=== PATIENT | male | born 1965 | race Caucasian/White ===

== ENCOUNTER 2022-04-25 08:04 | Day surgery (SDC) | payer OTHER ==
[~2022-04-25] VITALS: Ht 177.8 cm; Wt 103.2 kg
[~2022-04-25 08:04] MED LIST: ATORVASTATIN CA80 MG PO; B COMPLEX1 EACH PO; FISH OIL 1,001000 MG PO; ONE DAILY PLUS1 EAC1 PO; SAW PALMETTO500 MG PO; TADALAFIL5 MG PO; ZOCOR20 MG PO; ZOLPIDEM TARTRAT5 MG PO
--- NOTE | 2022-04-25 09:52 | NUR ---
04/25/22 0952 Ketty Srivastava 0943-PT TO PACU IN SF POSITION. EYES CLOSED. RESPONDS TO VERBAL AND TACTILE STIMULI. DENIES PAIN AND NAUSEA, REPOSITIONS SELF TO LL POSITION AND FALLS QUICKLY BACK TO SLEEP. BREATHING EASY AND UNLABORED. SPO2 >95% ON 3 L O2 VIA NC. 0952-PT SLEEPS IN LL POSITION. BREATHING EASY AND UNLABORED. SPO2 >95% ON 3 L O2 VIA NC. PT PASSING GAS.
--- NOTE | 2022-04-26 07:05 | OR ---
[facility] [address], [place] [address] Signed DATE OF OPERATION: 04/25/2022 SURGEON: Odell Gomez MD PREOPERATIVE DIAGNOSIS: Personal history of colonic polyps, age 51 in 2017. POSTOPERATIVE DIAGNOSES: 1. Minimal internal hemorrhoids. 2. 5 mm polyp at 60 cm (left colon). 3. 4 mm polyp at 20 cm (rectum). 4. 3 mm polyp at 7 cm (rectum). PROCEDURE: Colonoscopy with hot biopsy. ESTIMATED BLOOD LOSS: None. INDICATIONS: Harmeet is a 56-year-old gentleman asked to see me for a followup colonoscopy. He underwent a screening colonoscopy in [address] Umanzor in [place], [place]. He recalls a 4 mm polyp had been removed. He was told to follow up in 5 years. He currently has no lower GI complaints. Dr. Umanzor has moved out of our area. He has no family history of colon cancer or polyps. In the office, I gave him a pamphlet on colonoscopy. We reviewed the nature of the test. He understands there is risk including, but not limited to gas bloating, crampy abdominal pain, bleeding, perforation requiring surgery, and missed diagnosis. He also understands the need for IV conscious sedation. He had expressed understanding and wished to proceed. PROCEDURE NOTE: Harmeet was taken into our endoscopy suite and placed in the left lateral decubitus position. He was given 8 mg of Versed and 200 mcg of fentanyl to cover the case. A digital rectal exam was performed and he has excellent sphincter tone. No external hemorrhoids. The prostate ever so slightly enlarged and indurated. The adult colonoscope had been introduced and advanced all around into the cecum under direct visualization of the camera. He took some extra sedation in order to get to the cecum. His prep was good. There were a couple areas where I could not quite get all the liquid stool out, but otherwise it was a good prep. We could easily see the cecum and the ileocecal valve. We withdrew the scope. We took pictures throughout for Electronically Signed By: ODELL GOMEZ MD 04/26/22 0705 PATIENT NAME: HARMEET COREY OPERATIVE REPORT DATE OF : 67 REPORT #: [id number] PHYSICIAN: ODELL GOMEZ MD PCP: HEVER JARRELL MD REPORT IS CONFIDENTIAL AND NOT TO BE RELEASED WITHOUT AUTHORIZATION [facility] [address] [place] [id number] Signed photodocumentation. The above three polyps were removed with the help of hot biopsy forceps. There was no diverticulosis. Upon retroflexion of the scope, there was very minimal internal hemorrhoid tissue. After this, the gas was suctioned out and the colonoscope removed. Harmeet tolerated procedure quite well. RECOMMENDATIONS: I will see Harmeet back in my office in 7 to 14 days to review his results. I suspect he will be on the five year plan. MD FLACO Green/MUNAL /[id number] cc: [facility] [place] Esquivel MD Copies: HEVER JARRELL DMD ~ Electronically Signed By: ODELL GOMEZ MD 04/26/22 0705 PATIENT NAME: HARMEET COREY OPERATIVE REPORT DATE OF : 67 REPORT #: [id number] PHYSICIAN: ODELL GOMEZ MD PCP: HEVER JARRELL MD REPORT IS CONFIDENTIAL AND NOT TO BE RELEASED WITHOUT AUTHORIZATION
--- NOTE | 2022-04-27 14:17 | PATH ---
[facility] [address], [place] [address] Signed SPECIMEN(S): A DESCENDING/LEFT COLON POLYP AT 60 CM SPECIMEN(S): B DISTAL SIGMOID AT 20 CM SPECIMEN(S): C RECTUM AT 7 CM SPECIMEN SOURCE: A. DESCENDING/LEFT COLON POLYP AT 60 CM B. DISTAL SIGMOID AT 20 CM C. RECTUM AT 7 CM CLINICAL HISTORY: Hx of polyps. FINAL PATHOLOGIC DIAGNOSIS: A. 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 B. Distal sigmoid at 20 cm, biopsy: - Tubular adenoma (one fragment). C. Rectum at 7 cm: - Hyperplastic polyp (one fragment). JVR:criss:C2NR MICROSCOPIC EXAMINATION: Histologic sections of all submitted blocks are examined by light microscopy. These findings, together with the gross examination, support the pathologic diagnosis. GROSS DESCRIPTION: Three specimens are received in three containers, labeled "MP." A. The specimen, labeled "MP, descending/left colon polyp at 60 cm," is received in formalin and consists of one collado soft tissue fragment that measures 0.2 cm in greatest dimension. The specimen is entirely submitted in cassette (A1). B. The specimen, labeled "MP, distal sigmoid at 20 cm," is received in formalin and consists of one collado soft tissue fragment that measures 0.2 cm in greatest dimension. The specimen is entirely submitted in cassette (B1). C. The specimen, labeled "MP, rectum at 7 cm," is received in formalin and consists of one collado soft tissue fragment that measures 0.2 cm in greatest dimension. The specimen is entirely submitted in cassette (C1). PATIENT NAME: DAVID COREY PATHOLOGY DATE OF : 67 REPORT #: [id number] PHYSICIAN: JOY PATHOLOGY PCP: HEVER JARRELL MD REPORT IS CONFIDENTIAL AND NOT TO BE RELEASED WITHOUT AUTHORIZATION [facility] [address], [place] [address] Signed VB (under the direct supervision of a pathologist) The Gross Description was prepared using a voice recognition system. The report was reviewed for accuracy; however, sound-alike word errors, addition and/or deletions may occur. If there is any question about this report, please contact Client Services. PERFORMING LABORATORY: The technical component was performed by [facility], [address] [place] [id number] (CLIA# [id number]). Professional interpretation was performed by [facility], [address] [place] [id number] (CLIA#: [id number]). Diagnostician: Martinez Priest MD Pathologist Electronically Signed 04/27/2022 Copies: ~ PATIENT NAME: DAVID COREY PATHOLOGY DATE OF : 67 REPORT #: [id number] PHYSICIAN: JOY PATHOLOGY PCP: HEVER JARRELL MD REPORT IS CONFIDENTIAL AND NOT TO BE RELEASED WITHOUT AUTHORIZATION
== END 2022-04-25 10:38 | disposition home or self-care (01) ==
LOC: DS 08:04 → OPS 08:04 → DS 09:45 → OPS 09:45
PROVIDERS: ATTEND Colon & Rectal Surgery
PROC: 0DBP8ZZ Excision of Rectum, Via Natural or Artificial Opening Endoscopic (ICD-10-PCS; 2022-04-25)
PROC: 0DBM8ZZ Excision of Descending Colon, Via Natural or Artificial Opening Endoscopic (ICD-10-PCS; principal; 2022-04-25 09:45)
DX: Z12.11 Encounter for screening for malignant neoplasm of colon (principal); E78.00 Pure hypercholesterolemia, unspecified; Z86.010 Personal history of colon polyps; K62.1 Rectal polyp; K64.8 Other hemorrhoids; D12.5 Benign neoplasm of sigmoid colon
CPT/HCPCS: 88305; 99153; G0500; J2250; J3010